=== PATIENT | male | born 1965 | race Caucasian/White ===

== ENCOUNTER → 2020-10-31 | Outpatient (CLI) | payer BC, OTHER ==
[~2020-10-31] MED LIST: ACET-461 PO; CINN1CAP PO; HYDR118S10 PO; IBUP200C PO; LOSA50TA6 PO; METO50TA7 PO; NAPR220T76 PO; OMEP20CA12 PO; OMEP40CA36 PO
--- NOTE | 2020-10-31 15:21 | Diagnostic Imaging Report ---
Indication: Fall from tree, hip pain. Findings: 2 view left hip showed no bony avulsion or other fracture pattern, the left pubic ring was intact, the symphysis and left SI joint intact. The femoral heads directed into the acetabulum. No fracture identified. Impression: Unremarkable 2 view left hip. Dictated by: Dictated on workstation # [id number]
--- NOTE | 2020-10-31 15:45 | Diagnostic Imaging Report ---
INDICATION: Fall with left-sided pain. COMPARISON: Correlation is made with an abdominopelvic CT dated 12/04/2011. That exam does include sagittal and coronal reconstructions. FINDINGS: Well-corticated irregularities at the anterosuperior endplate of L4 are identical to the remote comparison. This is a chronic finding. Remaining lumbar statures are normal. There is some mild multilevel degenerative disc space narrowing, most notably at L3-L4, L4-L5, and L5-S1. These are chronic findings having mildly progressed from the comparison. No acute appearing abnormality. IMPRESSION: Mild progressive spondylosis, old chronic anterosuperior L4 endplate irregularities. No acute fracture or traumatic malalignment. Dictated by: Dictated on workstation # [id number]
--- NOTE | 2020-10-31 15:48 | Diagnostic Imaging Report ---
INDICATION: Fall with pain. FINDINGS: Three views of the left ankle performed. No widening of the mortise. The plafond and talar dome are intact. Base of the fifth metatarsal is intact. The medial, lateral, and posterior malleoli appeared intact. No fracture could be identified. IMPRESSION: No acute appearing abnormality at three-view left ankle. Dictated by: Dictated on workstation # [id number]
== END ==
LOC: RAD 14:07
PROVIDERS: ATTEND Nurse Practitioner Family
DX: M47.816 Spondylosis without myelopathy or radiculopathy, lumbar region (principal); W14.XXXA Fall from tree, initial encounter
CPT/HCPCS: 72100; 73502; 73610

== ENCOUNTER → 2020-12-07 | Outpatient (CLI) | payer OTHER ==
--- NOTE | 2020-12-07 12:06 | Diagnostic Imaging Report ---
PROCEDURE: MRI lumbar spine. TECHNIQUE: Multiplanar, multisequence MRI of the lumbar spine was performed without contrast. DATE: December 07, 2020. COMPARISON: Lumbar spine radiographs October 31, 2020. INDICATION: 55-year-old male, low back and right lower extremity pain. FINDINGS: The alignment of the lumbar spine is unremarkable. There is no evidence of a diffuse marrow infiltrating or replacing process. There is no focal concerning bone lesion. No compression deformity or fracture. The visualized cord and conus medullaris is unremarkable and terminates at the L1-L2 level. There is mild disc height loss at L3-L4, L4-L5, and L5-S1. L1-L2: There is no disc bulge. The facet joints and ligamentum flavum are unremarkable. There is no foraminal narrowing. There is no spinal canal stenosis. L2-L3: There is no disc bulge. The facet joints and ligamentum flavum are unremarkable. There is no foraminal narrowing. There is no spinal canal stenosis. L3-L4: There is diffuse disc bulge. There is mild narrowing of the bilateral lateral recesses. The facet joints and ligamentum flavum are unremarkable. There is no foraminal narrowing. There is no spinal canal stenosis. L4-L5: There is diffuse disc bulge. There is severe narrowing of bilateral lateral recesses. The facet joints and ligamentum flavum are unremarkable. There is moderate bilateral foraminal narrowing. There is moderate to severe spinal canal stenosis. L5-S1: There is mild diffuse disc bulge. There are mild bilateral facet degenerative changes without ligamentum flavum hypertrophy. There is no foraminal narrowing. There is no spinal canal stenosis. IMPRESSION: 1. Disc and facet degenerative changes of the lower lumbar spine most notable at L4-L5 with severe narrowing of bilateral lateral recesses, moderate bilateral foraminal narrowing, and moderate to severe spinal stenosis at this level. Dictated by: Dictated on workstation # [id number]
== END ==
LOC: RAD 08:21
PROVIDERS: ATTEND Family Medicine
DX: M47.816 Spondylosis without myelopathy or radiculopathy, lumbar region (principal); M51.36 Other intervertebral disc degeneration, lumbar region; M48.061 Spinal stenosis, lumbar region without neurogenic claudication
CPT/HCPCS: 72148

== ENCOUNTER 2021-01-23 16:18 | Outpatient (RCR) | payer OTHER | END 2021-03-06 11:40 | disposition home or self-care (01) | PROVIDERS: ATTEND Orthopaedic Surgery Orthopaedic Surgery of the Spine | DX: M51.16 Intervertebral disc disorders with radiculopathy, lumbar region (principal); I10 Essential (primary) hypertension; E11.9 Type 2 diabetes mellitus without complications ==

== ENCOUNTER → 2021-03-12 | Outpatient (CLI) | payer OTHER ==
--- NOTE | 2021-03-12 16:09 | Diagnostic Imaging Report ---
INDICATION: Knee pain. EXAMINATION: Left knee, 4 views, on 03/12/2021. FINDINGS: There is no evidence for an acute fracture or dislocation. The joint spaces are well maintained. There is no significant soft tissue swelling. IMPRESSION: No acute process. Dictated by: Dictated on workstation # [id number]
== END ==
LOC: ORTHO 14:31
PROVIDERS: ATTEND Orthopaedic Surgery
DX: M25.562 Pain in left knee (principal)
CPT/HCPCS: 73564; G0463; 99202

== ENCOUNTER → 2021-03-25 | Outpatient (CLI) | payer OTHER ==
--- NOTE | 2021-03-25 09:58 | Diagnostic Imaging Report ---
PROCEDURE: MRI left joint lower extremity without contrast. TECHNIQUE: Multiplanar, multisequence noncontrast enhanced MRI of the left lower extremity was accomplished. INDICATION: Fall a few months ago with left knee pain. COMPARISON: Radiographs from 03/12/2021. FINDINGS: No acute fracture is seen in the left knee. Alignment appears normal. There is a minimal left knee joint effusion. The articular cartilage in the patellofemoral compartment demonstrates heterogeneity and small full-thickness defects at the lateral facet. The articular cartilage in the medial compartment demonstrates mild heterogeneity and surface irregularity with no large full-thickness defects. The lateral compartment articular cartilage demonstrates no large full-thickness defects. There is a complex tear of the posterior horn of the medial meniscus which extends toward the body. The lateral meniscus appears intact. The anterior and posterior cruciate ligaments are intact. The medial collateral ligament is mildly bowed, likely due to the underlying meniscal pathology. The lateral collateral ligamentous complex is intact. The extensor mechanism is intact. The medial and lateral retinacula are intact. Soft tissues about the left knee demonstrate no acute abnormality. There is a minimal Morales's cyst. IMPRESSION: 1. Complex tear of the medial meniscus. 2. Tricompartmental degenerative change and cartilage loss in the left knee, most pronounced in the medial compartment. 3. Minimal left knee joint effusion. Minimal Morales's cyst. Dictated by: Dictated on workstation # [id number]
== END ==
LOC: RAD 08:00
PROVIDERS: ATTEND Orthopaedic Surgery
DX: S83.232A Complex tear of medial meniscus, current injury, left knee, initial encounter (principal); M17.12 Unilateral primary osteoarthritis, left knee; W19.XXXA Unspecified fall, initial encounter
CPT/HCPCS: 73721

== ENCOUNTER → 2021-04-02 | Outpatient (CLI) | payer OTHER ==
[~2021-04-02] MED LIST changes: +ACET-93 PO; +ESOM20CA PO; +IBUP-2185 PO; +LOSA1TAB23 PO; +METF-397 PO; +MULT-1056 PO
== END ==
LOC: ORTHO 14:40
PROVIDERS: ATTEND Orthopaedic Surgery
DX: S83.242A Other tear of medial meniscus, current injury, left knee, initial encounter (principal); X58.XXXA Exposure to other specified factors, initial encounter

== ENCOUNTER → 2021-04-02 | Outpatient (CLI) | payer OTHER | LOC: ORTHO 15:08 | PROVIDERS: ATTEND Orthopaedic Surgery | DX: S83.242A Other tear of medial meniscus, current injury, left knee, initial encounter (principal); X58.XXXA Exposure to other specified factors, initial encounter ==

== ENCOUNTER 2021-04-03 05:37 | Outpatient (CLI) | payer OTHER ==
[~2021-04-03] VITALS: Ht 177.8 cm; Wt 102.2 kg
[~2021-04-03 05:37] MED LIST changes: -ACET-93 PO; -ESOM20CA PO; -IBUP-2185 PO; -LOSA1TAB23 PO; -METF-397 PO; -MULT-1056 PO
[2021-04-03] MEDS ORDERED: METO50TA7 PO (10:38)
[2021-04-03] MEDS ORDERED: LOSA1TAB23 PO (10:38)
[2021-04-03] MEDS ORDERED: IBUP-2185 PO (10:38)
[2021-04-03] MEDS ORDERED: MULT-1056 PO (10:38)
[2021-04-03] MEDS ORDERED: ACET-93 PO (10:38)
[2021-04-03] MEDS ORDERED: ESOM20CA PO (10:38)
[2021-04-03] MEDS ORDERED: METF-397 PO (10:38)
== END 2021-04-03 10:50 | disposition home or self-care (01) ==
LOC: PREOP 05:37
PROVIDERS: ATTEND Orthopaedic Surgery
DX: Z01.818 Encounter for other preprocedural examination (principal)

== ENCOUNTER 2021-04-08 07:44 | Day surgery (SDC) | payer OTHER ==
[~2021-04-08] VITALS: Ht 177.8 cm; Wt 102.2 kg
[2021-04-08] VITALS (11 sets, daily range): BP systolic 147–165; BP diastolic 97–117
[~2021-04-08 07:44] MED LIST changes: +ACET-93 PO; +ESOM20CA PO; +IBUP-2185 PO; +LOSA1TAB23 PO; +METF-397 PO; +MULT-1056 PO
[2021-04-08] MEDS ORDERED: LACTATED RINGERS 1,000 ML IV PRN (08:00)
[2021-04-08] MEDS ORDERED: ceFAZolin 2 GM IV Premixed 50 ML IV ONE (08:00)
[2021-04-08] MEDS ORDERED: BUPIVACAINE 0.25% 30 ML (SENSORCAINE) VIAL ONE (09:11)
[2021-04-08] MEDS ORDERED: proPOfol 200 MG/20 ML (DIPRIVAN) VIAL IV ONE (09:16)
[2021-04-08] MEDS ORDERED: fentaNYL INJ 100 MCG/2 ML AMP ONE (09:16)
[2021-04-08] MEDS ORDERED: ONDANSETRON 4 MG/2 ML (SDV) Z0FRAN ONE (09:16)
[2021-04-08] MEDS ORDERED: LIDOCAINE PF 2% 5 ML (XYLOCAINE) VIAL ONE (09:16)
[2021-04-08] MEDS ORDERED: MIDAZOLAM 2 MG/2 ML (VERSED) VIAL ONE (09:17)
[2021-04-08] MEDS ORDERED: ceFAZolin 2 GM IV Premixed 50 ML ONE (10:30)
--- NOTE | 2021-04-08 10:40 | Progress Note-Pre Operative ---
Pre-Operative Progress Note H&P Reviewed The H&P was reviewed, patient examined and no changes noted. Date Seen by Provider: Apr 08, 2021 Time Seen by Provider: 10: Date H&P Reviewed: Apr 08, 2021 Time H&P Reviewed: :30 Pre-Operative Diagnosis: Left Medial Meniscus Tear JULIET AGUILAR MD Apr 08, 2021 10:40
--- NOTE | 2021-04-08 11:21 | Operative Report - Ortho ---
Operative Report Surgeon (s)/[employer] (s) Surgeon JULIET AGUILAR MD [employer] n/a Pre-Operative Diagnosis Left Medial Meniscus Tear Post-Operative Diagnosis same Operative Report Date of Procedure: Apr 08, 2021 Name of Procedure Performed: Left Knee Arthroscopy with Partial Medial Menisectomy Description & Findings After obtaining informed consent and marking the patient in the preoperative holding area, the patient was administered IV antibiotics and taken to the operating room. General anesthesia was induced. The right lower extremity was placed in the well leg valdivia and the left leg was placed in the arthroscopic valdivia. Surgical timeout was taken. The left lower extremity was prepped and draped in the usual sterile fashion. An anterolateral portal was established and a diagnostic knee arthroscopy was performed with the following findings: the patellofemoral portion of the joint demonstrated grade II change, the patella tracked well through the trochlear groove, the gutters were free of loose bodies, there was a medial meniscus tear at the junction of the body and the posterior horn, grade II change in the medial compartment, ACL was intact, lateral compartment with intact meniscus and articular cartilage. An anteromedial portal was established. Probe was inserted and the meniscal tear was explored. Using a combination of shaver and basket biters, the meniscal tear was debrided to a stable border. Probe was reinserted and confirmed that the mensicectomy was stable. Instruments were withdrawn. Wounds were closed with 3-0 nylon and dressed with xeroform, 4x4s, ABD, cast padding, and MAR wrap. Patient tolerated the procedure well and was stable to the recovery room. Anesthesia Type General Estimated Blood Loss minimal Specimen(s) collected/removed None JULIET AGUILAR MD Apr 08, 2021 11:21
[2021-04-08] MEDS ORDERED: OXYC1TAB11 PO (11:23)
--- NOTE | 2021-04-08 11:27 | Anesthesia-General Post-Op ---
General Patient Condition Mental Status/LOC: Same as Preop Cardiovascular: Satisfactory Nausea/Vomiting: Absent Respiratory: Satisfactory Pain: Controlled Complications: Absent Post Op Complications Complications None Follow Up Care/Instructions Patient Instructions None needed. Anesthesia/Patient Condition Patient Condition Patient is doing well, no complaints, stable vital signs, no apparent adverse anesthesia problems. No complications reported per nursing. JOSUE HARRINGTON CRNA Apr 08, 2021 11:27
[2021-04-08] MEDS ORDERED: PROMETHAZINE INJ 25 MG/ML (PHENERGAN) AMP IVP ONE (11:30)
[2021-04-08] MEDS ORDERED: MEPERIDINE (DEMEROL) INJ 50 MG/ML IVP ONE (11:30)
[2021-04-08] MEDS ORDERED: ONDANSETRON 4 MG/2 ML (SDV) Z0FRAN IVP PRN (11:30)
[2021-04-08] MEDS ORDERED: morphine INJ 10 MG/ML 1ML (SYR OR VIAL) IVP ONE (11:30)
== END 2021-04-08 13:30 ==
LOC: SDC 07:44
PROVIDERS: ATTEND Orthopaedic Surgery
DX: S83.242A Other tear of medial meniscus, current injury, left knee, initial encounter (principal); K21.9 Gastro-esophageal reflux disease without esophagitis; E11.9 Type 2 diabetes mellitus without complications; I10 Essential (primary) hypertension; M19.90 Unspecified osteoarthritis, unspecified site; J30.2 Other seasonal allergic rhinitis; M48.061 Spinal stenosis, lumbar region without neurogenic claudication; Z79.899 Other long term (current) drug therapy; Z79.84 Long term (current) use of oral hypoglycemic drugs; Z79.1 Long term (current) use of non-steroidal anti-inflammatories (NSAID)
CPT/HCPCS: 87081

== ENCOUNTER → 2021-04-18 | Outpatient (CLI) | payer OTHER ==
[~2021-04-18] MED LIST changes: +OXYC1TAB11 PO
== END ==
LOC: ORTHO 08:20
PROVIDERS: ATTEND Orthopaedic Surgery
DX: Z47.89 Encounter for other orthopedic aftercare (principal); Z98.890 Other specified postprocedural states

== ENCOUNTER 2021-05-03 08:56 | Outpatient (CLI) | payer BC, OTHER | END 2021-05-03 09:15 | LOC: SLEEP 08:56 | PROVIDERS: ATTEND Family Medicine | DX: G47.33 Obstructive sleep apnea (adult) (pediatric) (principal) | CPT/HCPCS: G0399 ==

== ENCOUNTER → 2021-05-21 | Outpatient (CLI) | payer BC | LOC: ORTHO 08:14 | PROVIDERS: ATTEND Orthopaedic Surgery | DX: Z47.89 Encounter for other orthopedic aftercare (principal); Z98.890 Other specified postprocedural states ==